=== PATIENT | male | born 1960 | race African-American/Black ===

== ENCOUNTER 2017-12-19 14:47 | Emergency (ER) | payer MEDICARE, MEDICAID ==
[~2017-12-19] VITALS: Ht 170.2 cm; Wt 59.0 kg
[~2017-12-19 14:47] MED LIST: CARV6.252 PO; CHLO25CA9 PO; FOLI-17 PO; LISI-167 PO; MAGN400T26 PO; MULT-500 PO; OXYC1TAB7 PO; QUET100T PO; TAMS-11 PO
[2017-12-19 15:57] LABS: BASOPHILS # (AUTO) 0.07 x10^3/uL (0-0.1); BASOPHILS % (AUTO) 1 % (0-1); EOSINOPHILS # (AUTO) 0.12 x10^3/uL (0-0.4); EOSINOPHILS % (AUTO) 1 % (1-7); LYMPHOCYTES # (AUTO) 2.22 x10^3/uL (1-3.4); LYMPHOCYTES % (AUTO) 24 % (22-44); MD NO; MEAN CORPUSCULAR HEMOGLOBIN 32.6 pg (27.5-34.5); MEAN CORPUSCULAR HGB CONC 33.2 g/dL (33.2-36.2); MEAN CORPUSCULAR VOLUME 98.3 fL (81-97); MEAN PLATELET VOLUME 9.5 fL (7.4-10.4); MONOCYTES # (AUTO) 0.59 x10^3/uL (0.2-0.8); MONOCYTES % (AUTO) 6 % (2-9); NEUTROPHILS # (AUTO) 6.46 x10^3/uL (1.8-6.8); NEUTROPHILS % (AUTO) 68 % (42-75); PLATELET COUNT 215 x10^3/uL (130-400); RED BLOOD COUNT 4.91 x10^6/uL (4.38-5.82); RED CELL DISTRIBUTION WIDTH 13.9 % (9.4-14.8)
[2017-12-19 16:02] LABS: ALBUMIN 4.1 g/dL (3.4-5.0); ANION GAP 9 mmol/L (5-15); CALCIUM 8.8 mg/dL (8.5-10.1); CHLORIDE 110 mmol/L (98-107); CREATININE 0.87 mg/dL (0.7-1.3)
[2017-12-19 17:03] VITALS: BP 141/99
== END 2017-12-19 17:06 | disposition home or self-care (01) ==
LOC: ED 17:00
DX: I10 Essential (primary) hypertension (principal); F20.9 Schizophrenia, unspecified; F17.200 Nicotine dependence, unspecified, uncomplicated
CPT/HCPCS: 36415; 80048; 82040; 85025; 93005; 99285

== ENCOUNTER 2018-02-08 14:45 | Emergency (ER) | payer MEDICAID, MEDICARE ==
[~2018-02-08] VITALS: Ht 177.8 cm; Wt 62.0 kg
[2018-02-08 14:52] VITALS: BP 173/113
== END 2018-02-08 15:53 | disposition left against medical advice (07) ==
LOC: ED 15:47
DX: R25.1 Tremor, unspecified (principal); E11.9 Type 2 diabetes mellitus without complications; I10 Essential (primary) hypertension; F20.9 Schizophrenia, unspecified
CPT/HCPCS: 99283

== ENCOUNTER 2018-03-18 16:45 | Inpatient (IN) | payer MEDICARE, MEDICAID ==
[~2018-03-18] VITALS: Ht 170.2 cm; Wt 62.0 kg
[2018-03-18] MEDS ORDERED: SODIUM CHLORIDE FLUSH 10ML SYR IVF ONE (18:00)
[2018-03-18] MEDS ORDERED: ACETAMINOPHEN 500 MG TABLET PO ONE (18:00)
[2018-03-18] MEDS ORDERED: SODIUM CHLORIDE 0.9% 1,000ML IVBOLUS ONE (18:00)
[2018-03-18 18:18] LABS: BASOPHILS # (AUTO) 0.02 x10^3/uL (0-0.1); BASOPHILS % (AUTO) 0 % (0-1); EOSINOPHILS # (AUTO) 0.05 x10^3/uL (0-0.4); EOSINOPHILS % (AUTO) 1 % (1-7); LYMPHOCYTES # (AUTO) 1.49 x10^3/uL (1-3.4); LYMPHOCYTES % (AUTO) 33 % (22-44); MD NO; MEAN CORPUSCULAR HEMOGLOBIN 32.9 pg (27.5-34.5); MEAN CORPUSCULAR HGB CONC 33.7 g/dL (33.2-36.2); MEAN CORPUSCULAR VOLUME 97.6 fL (81-97); MEAN PLATELET VOLUME 9.3 fL (7.4-10.4); MONOCYTES # (AUTO) 0.57 x10^3/uL (0.2-0.8); MONOCYTES % (AUTO) 13 % (2-9); NEUTROPHILS # (AUTO) 2.43 x10^3/uL (1.8-6.8); NEUTROPHILS % (AUTO) 53 % (42-75); PLATELET COUNT 183 x10^3/uL (130-400); RED BLOOD COUNT 4.48 x10^6/uL (4.38-5.82); RED CELL DISTRIBUTION WIDTH 13.2 % (9.4-14.8)
[2018-03-18] MEDS ORDERED: ACETAMINOPHEN 500 MG TABLET ONE (18:25)
[2018-03-18 18:27] LABS: ALANINE AMINOTRANSFERASE 25 U/L (12-78); ALBUMIN 3.3 g/dL (3.4-5.0); ANION GAP 10 mmol/L (5-15); CHLORIDE 107 mmol/L (98-107)
[2018-03-18 18:30] LABS: ALKALINE PHOSPHATASE 149 U/L (45-117); BILIRUBIN,TOTAL 0.3 mg/dL (0.2-1.0); CREATININE 0.92 mg/dL (0.7-1.3); TOTAL PROTEIN 6.8 g/dL (6.4-8.2)
[2018-03-18 19:21] LABS: MICROSCOPIC INDICATED
[2018-03-18 19:58] LABS: FREE T4 (FREE THYROXINE) 1.12 ng/dL (0.76-1.46); THYROID STIMULATING HORMONE 1.14 mIU/L (0.358-3.740)
[2018-03-18 20:03] LABS: CULTURE INDICATED? NO
[2018-03-18] MEDS ORDERED: AZITHROMYCIN 500 MG in SODIUM CHLORIDE 0.9% 250 ML IV ONE (20:30)
[2018-03-18] MEDS ORDERED: CEFTRIAXONE PMX 1GM/50ML 50 ML IV ONE (20:30)
[2018-03-18 20:31] LABS: AMPHETAMINE SCREEN, URINE Positive (Negative); BARBITURATE SCREEN, URINE Negative (Negative); BENZODIAZEPINE SCREEN, URINE Negative (Negative); CANNABINOID SCREEN, URINE Positive (Negative); COCAINE SCREEN, URINE Negative (Negative); METHADONE SCREEN, URINE Negative (Negative); OPIATE SCREEN, URINE Negative (Negative)
[2018-03-18] MEDS ORDERED: CEFTRIAXONE PMX 1GM/50ML 50 ML ONE (20:34)
[2018-03-18] MEDS ORDERED: METO50TA82 PO (20:56)
[2018-03-18] MEDS ORDERED: LISI-167 PO (20:56)
[2018-03-18] MEDS ORDERED: DULO60CA7 PO (20:56)
[2018-03-18] MEDS ORDERED: OMEP-110 PO (20:56)
[2018-03-18] MEDS ORDERED: OXYB5TAB7 PO (20:56)
[2018-03-18] MEDS ORDERED: ESCI10TA10 PO (20:56)
[2018-03-18] MEDS ORDERED: IBUPROFEN 600 MG TABLET PO PRN (21:00)
[2018-03-18] MEDS ORDERED: POLYETHYLENE GLYCOL 17 GM PACKET PO PRN (21:00)
[2018-03-18] MEDS ORDERED: ACETAMINOPHEN 325 MG TABLET PO PRN (21:00)
[2018-03-18] MEDS ORDERED: ONDANSETRON 2MG/ML, 2ML IVPush PRN (21:00)
[2018-03-18] MEDS ORDERED: ALBUTEROL SULFATE 2.5 MG/3 ML ONE (21:17)
[2018-03-18] MEDS ORDERED: ALBUTEROL SULFATE 2.5 MG/3 ML NPPB PRN (21:30)
[2018-03-18 22:02] LABS: RAPID INFLUENZA A Negative (Negative); RAPID INFLUENZA B Negative (Negative)
[2018-03-18] MEDS: SODIUM CHLORIDE 0.9% 1,000 ML IV SCH (22:23)
[2018-03-18 23:10] VITALS: BP 128/87
[2018-03-19] MEDS: GUAIFENESIN ER 600 MG TABLET PO SCH ×3 (01:18→22:24)
[2018-03-19] MEDS: methylPREDNISolone SOD SUCC 40 MG/ML IVPush SCH ×2 (01:18→06:20)
[2018-03-19] MEDS: ENOXAPARIN 40 MG/0.4 ML SQ SCH ×2 (01:19→22:25)
[2018-03-19 01:26] VITALS: BP 139/92
[2018-03-19 05:29] LABS: BASOPHILS # (AUTO) 0.01 x10^3/uL (0-0.1); BASOPHILS % (AUTO) 0 % (0-1); EOSINOPHILS # (AUTO) 0.01 x10^3/uL (0-0.4); EOSINOPHILS % (AUTO) 0 % (1-7); LYMPHOCYTES # (AUTO) 0.67 x10^3/uL (1-3.4); LYMPHOCYTES % (AUTO) 16 % (22-44); MD NO; MEAN CORPUSCULAR HEMOGLOBIN 33.2 pg (27.5-34.5); MEAN CORPUSCULAR HGB CONC 33.5 g/dL (33.2-36.2); MEAN CORPUSCULAR VOLUME 99.1 fL (81-97); MEAN PLATELET VOLUME 9.4 fL (7.4-10.4); MONOCYTES # (AUTO) 0.16 x10^3/uL (0.2-0.8); MONOCYTES % (AUTO) 4 % (2-9); NEUTROPHILS # (AUTO) 3.24 x10^3/uL (1.8-6.8); NEUTROPHILS % (AUTO) 79 % (42-75); PLATELET COUNT 168 x10^3/uL (130-400); RED BLOOD COUNT 4.44 x10^6/uL (4.38-5.82); RED CELL DISTRIBUTION WIDTH 13.2 % (9.4-14.8)
[2018-03-19 05:38] LABS: ALANINE AMINOTRANSFERASE 20 U/L (12-78); ANION GAP 7 mmol/L (5-15); CALCIUM 8.3 mg/dL (8.5-10.1); CHLORIDE 111 mmol/L (98-107)
[2018-03-19 05:40] LABS: ALKALINE PHOSPHATASE 148 U/L (45-117); BILIRUBIN,TOTAL 0.3 mg/dL (0.2-1.0); CREATININE 0.67 mg/dL (0.7-1.3); TOTAL PROTEIN 6.2 g/dL (6.4-8.2)
[2018-03-19] MEDS: SODIUM CHLORIDE 0.9% 1,000 ML IV SCH ×2 (08:28→18:36)
[2018-03-19 08:30] VITALS: BP 143/98
[2018-03-19 14:34] VITALS: BP 160/106
[2018-03-19] MEDS ORDERED: LISINOPRIL 20 MG TABLET ONE (15:57)
[2018-03-19] MEDS ORDERED: METOPROLOL TARTRATE 50 MG TABLET ONE (15:57)
[2018-03-19 15:58] VITALS: BP 171/114
[2018-03-19] MEDS: METOPROLOL TARTRATE 50 MG TABLET PO SCH (16:00)
[2018-03-19] MEDS: LISINOPRIL 20 MG TABLET PO SCH (16:00)
[2018-03-19 17:03] VITALS: BP 167/103
[2018-03-19 18:01] VITALS: BP 161/99
[2018-03-19] MEDS: QUETIAPINE 200 MG TABLET PO SCH (22:25)
[2018-03-19] MEDS: CEFTRIAXONE PMX 1GM/50ML 50 ML IV SCH (22:25)
[2018-03-19] MEDS: AZITHROMYCIN 500 MG in SODIUM CHLORIDE 0.9% 250 ML IV SCH (23:58)
[2018-03-20 00:05] VITALS: BP 143/89
[2018-03-20] MEDS: SODIUM CHLORIDE 0.9% 1,000 ML IV SCH ×2 (06:31→16:02)
[2018-03-20 08:14] VITALS: BP 169/102
[2018-03-20] MEDS: METOPROLOL TARTRATE 50 MG TABLET PO SCH (08:16)
[2018-03-20] MEDS: GUAIFENESIN ER 600 MG TABLET PO SCH ×2 (08:16→20:09)
[2018-03-20] MEDS: LISINOPRIL 20 MG TABLET PO SCH (08:16)
[2018-03-20] MEDS: OXYBUTYNIN CHLORIDE 5 MG TABLET PO SCH (08:17)
[2018-03-20] MEDS: DULOXETINE 30 MG CAPSULE.DR PO SCH (08:17)
[2018-03-20] MEDS: CITALOPRAM 20 MG TABLET PO SCH (08:17)
[2018-03-20 08:56] LABS: MEAN CORPUSCULAR HEMOGLOBIN 32.2 pg (27.5-34.5); MEAN CORPUSCULAR HGB CONC 32.9 g/dL (33.2-36.2); MEAN CORPUSCULAR VOLUME 97.7 fL (81-97); MEAN PLATELET VOLUME 8.6 fL (7.4-10.4); PLATELET COUNT 179 x10^3/uL (130-400); RED BLOOD COUNT 4.41 x10^6/uL (4.38-5.82); RED CELL DISTRIBUTION WIDTH 13.2 % (9.4-14.8)
[2018-03-20 08:57] LABS: ANION GAP 7 mmol/L (5-15); CALCIUM 8.2 mg/dL (8.5-10.1); CHLORIDE 112 mmol/L (98-107); CREATININE 0.74 mg/dL (0.7-1.3)
[2018-03-20] MEDS ORDERED: QUETIAPINE 200 MG TABLET PO SCH (09:00)
[2018-03-20 09:29] LABS: BASOPHILS # (AUTO) 0.05 x10^3/uL (0-0.1); BASOPHILS % (AUTO) 1 % (0-1); EOSINOPHILS # (AUTO) 0.06 x10^3/uL (0-0.4); EOSINOPHILS % (AUTO) 1 % (1-7); LYMPHOCYTES # (AUTO) 1.82 x10^3/uL (1-3.4); LYMPHOCYTES % (AUTO) 22 % (22-44); MD SCAN; MONOCYTES # (AUTO) 0.49 x10^3/uL (0.2-0.8); MONOCYTES % (AUTO) 6 % (2-9); NEUTROPHILS # (AUTO) 5.84 x10^3/uL (1.8-6.8); NEUTROPHILS % (AUTO) 71 % (42-75)
[2018-03-20] MEDS ORDERED: POTASSIUM CHLORIDE 20 MEQ TAB.ER.PRT PO ONE (09:30)
[2018-03-20 15:00] VITALS: BP 181/114
[2018-03-20] MEDS: hydrALAzine 20 MG/ML, 1ML IVPush PRN ×2 (15:07→20:10)
[2018-03-20 16:20] LABS: TROPONIN I < 0.015 ng/mL (0.000-0.045)
[2018-03-20] MEDS ORDERED: NITROGLYCERIN 0.4 MG BOTTLE (25 TABS) SL PRN (17:00)
[2018-03-20 17:20] VITALS: BP 172/102
[2018-03-20 19:33] VITALS: BP 173/112
[2018-03-20] MEDS: QUETIAPINE 200 MG TABLET PO SCH (20:09)
[2018-03-20] MEDS: ENOXAPARIN 40 MG/0.4 ML SQ SCH (20:09)
[2018-03-20 21:18] VITALS: BP 111/81
[2018-03-20] MEDS: CEFTRIAXONE PMX 1GM/50ML 50 ML IV SCH (22:25)
[2018-03-20 22:49] LABS: TROPONIN I < 0.015 ng/mL (0.000-0.045)
[2018-03-20] MEDS: AZITHROMYCIN 500 MG in SODIUM CHLORIDE 0.9% 250 ML IV SCH (23:43)
[2018-03-21 01:46] VITALS: BP 116/79
[2018-03-21 03:27] VITALS: BP 174/96
[2018-03-21] MEDS: hydrALAzine 20 MG/ML, 1ML IVPush PRN (03:32)
[2018-03-21 04:11] VITALS: BP 150/101
[2018-03-21 04:59] LABS: BASOPHILS # (AUTO) 0.09 x10^3/uL (0-0.1); BASOPHILS % (AUTO) 1 % (0-1); EOSINOPHILS # (AUTO) 0.03 x10^3/uL (0-0.4); EOSINOPHILS % (AUTO) 0 % (1-7); LYMPHOCYTES % (AUTO) 28 % (22-44); MD NO; MEAN CORPUSCULAR HEMOGLOBIN 32.6 pg (27.5-34.5); MEAN CORPUSCULAR HGB CONC 33.9 g/dL (33.2-36.2); MEAN CORPUSCULAR VOLUME 96.1 fL (81-97); MEAN PLATELET VOLUME 8.7 fL (7.4-10.4); MONOCYTES # (AUTO) 0.71 x10^3/uL (0.2-0.8); MONOCYTES % (AUTO) 9 % (2-9); NEUTROPHILS % (AUTO) 62 % (42-75); PLATELET COUNT 200 x10^3/uL (130-400); RED BLOOD COUNT 4.86 x10^6/uL (4.38-5.82)
[2018-03-21 05:11] LABS: ANION GAP 10 mmol/L (5-15); CALCIUM 8.3 mg/dL (8.5-10.1); CHLORIDE 108 mmol/L (98-107)
[2018-03-21 05:13] LABS: CREATININE 0.59 mg/dL (0.7-1.3)
[2018-03-21 05:14] LABS: TROPONIN I < 0.015 ng/mL (0.000-0.045)
[2018-03-21 05:51] VITALS: BP 160/108
[2018-03-21 06:45] VITALS: BP 170/111
[2018-03-21] MEDS: METOPROLOL TARTRATE 50 MG TABLET PO SCH (07:58)
[2018-03-21] MEDS: OXYBUTYNIN CHLORIDE 5 MG TABLET PO SCH (07:58)
[2018-03-21] MEDS: DULOXETINE 30 MG CAPSULE.DR PO SCH (07:58)
[2018-03-21] MEDS: GUAIFENESIN ER 600 MG TABLET PO SCH (07:58)
[2018-03-21] MEDS: CITALOPRAM 20 MG TABLET PO SCH (07:59)
[2018-03-21] MEDS: LISINOPRIL 20 MG TABLET PO SCH (07:59)
[2018-03-21] MEDS ORDERED: REGADENOSON 0.4 MG/5 ML SYRINGE ONE (09:00)
[2018-03-21] MEDS ORDERED: LORazepam 2 MG/ML, 1ML IVPush ONE (12:00)
[2018-03-21] MEDS ORDERED: BACLOFEN 10 MG TABLET ONE (12:28)
[2018-03-21] MEDS ORDERED: BACLOFEN 10 MG TABLET PO SCH (12:30)
[2018-03-21] MEDS ORDERED: BACLOFEN 10 MG TABLET PO ONE (13:00)
[2018-03-21 14:00] VITALS: BP 150/96
[2018-03-21] MEDS ORDERED: AZIT250T PO (14:13)
[2018-03-21] MEDS ORDERED: PRED20TA PO (14:13)
[2018-03-21] MEDS ORDERED: CEFD300C37 PO (14:13)
[2018-03-21] MEDS ORDERED: SODIUM CHLORIDE 0.9% 1,000 ML IV SCH (20:45)
== END 2018-03-21 16:27 | disposition home or self-care (01) | DRG 872 ==
LOC: ED 19:30 → EDIP 20:36 → 4NOR 22:58 → 5SO 03-20 17:26
PROVIDERS: ADMIT Hospitalist; ATTEND Hospitalist
DX: A41.9 Sepsis, unspecified organism (principal); J44.1 Chronic obstructive pulmonary disease with (acute) exacerbation; F10.239 Alcohol dependence with withdrawal, unspecified; F15.23 Other stimulant dependence with withdrawal; J44.0 Chronic obstructive pulmonary disease with (acute) lower respiratory infection; F20.9 Schizophrenia, unspecified; J20.9 Acute bronchitis, unspecified; E11.9 Type 2 diabetes mellitus without complications; F17.210 Nicotine dependence, cigarettes, uncomplicated; I10 Essential (primary) hypertension; R32 Unspecified urinary incontinence; Z59.0 Homelessness; Z87.01 Personal history of pneumonia (recurrent)
CPT/HCPCS: 36415; 71046; 78452; 80048; 80053; 80307; 81001; 83605; 83735; 84100; 84145; 84439; 84443; 84484; 85025; 85379; 87040; 87400; 93005; 93017; 94640; 96361; 96365; 96375; G0378; J0456; J0696; J1650; J2785; J7613; A9502; C9898; J0360; J2060; J2920; J7030; J7050; J7512

== ENCOUNTER 2019-02-25 21:40 | Emergency (ER) | payer MEDICARE, MEDICAID ==
[~2019-02-25] VITALS: Ht 170.2 cm; Wt 70.0 kg
[~2019-02-25 21:40] MED LIST changes: +AZIT250T PO; +CEFD300C37 PO; +DULO60CA7 PO; +ESCI10TA10 PO; +METO50TA82 PO; +OMEP-110 PO; +OXYB5TAB7 PO; +PRED20TA PO
[2019-02-25] MEDS ORDERED: LORazepam 1MG TABLET ONE (21:50)
[2019-02-25] MEDS ORDERED: LORazepam 1MG TABLET PO ONE (22:00)
--- NOTE | 2019-02-25 22:27 | NUR ---
IMPROVEMENT IN HR, 105. PT RESTING COMFORTABLY IN [facility]. REPORTS IMPROVEMENT IN S/S. DC EDUCATION PROVIDED. PT DEMONSTRATES UNDERSTANDING. PT AMBULATED STEADILY TO [place] WITH RN. HAS BUS PASS FOR SAFE TRANSPORT.
[2019-02-25 22:29] VITALS: BP 149/100
== END 2019-02-25 22:29 | disposition home or self-care (01) ==
LOC: ED 22:23
DX: F41.1 Generalized anxiety disorder (principal); F15.10 Other stimulant abuse, uncomplicated; I10 Essential (primary) hypertension; F20.9 Schizophrenia, unspecified; F17.210 Nicotine dependence, cigarettes, uncomplicated
CPT/HCPCS: 99284